=== PATIENT | male | born 1990 | race Caucasian/White ===

== ENCOUNTER 2022-01-11 00:05 | Emergency (ER) | payer BC, SELFPAY ==
[2022-01-11 00:16] VITALS: BP 139/83; PULSE 98; O2SAT 96
[2022-01-11 00:19] VITALS: BP 139/83; PULSE 66; RESP 18; TEMP 37; O2SAT 97; BMI 38.0
--- NOTE | 2022-01-11 00:39 | US_ITS ---
PROCEDURE INFORMATION: Exam: US Scrotum Exam date and time: 01/11/2022 1:36 AM Age: 31 years old Clinical indication: Scrotum pain; Additional info: Left testicle swollen no trauma. RO torsion TECHNIQUE: Imaging protocol: Real-time ultrasound of the scrotum and contents with color Doppler and image documentation. COMPARISON: No relevant prior studies available. FINDINGS: Right testicle: Normal. No mass. No torsion. Normal vascular flow. Right testicle measures 2.7 x 5 x 3.4 cm. Left testicle: Left testicle shows edema with mild increased vascularity. No mass. No torsion. Left testicle measures 2.5 x 4.5 x 3.9 cm. Epididymides: Normal. Scrotum: Normal. IMPRESSION: Left-sided orchitis.
--- NOTE | 2022-01-11 00:52 | [facility].EDUROGM ---
ED Disposition Clinical Impression: Orchitis of left testicle Disposition: Home, Self-Care Condition on Discharge: Good Instructions: DI for Orchitis Additional Instructions: use meds and see pcp and urology for follow up Prescriptions: Minocycline HCl [Minocycline HCl 100mg Tab*] 100 mg PO BID #20 tab Transmission Status: Pending to [facility] #[id number] Referrals: Provider,Referral, [Primary Care Provider] - - Critical Care Critical Care Time: No Attestation: On 01/11/22, the high probability of a clinically significant, sudden or life threatening deterioration of the following system(s) required my full and direct attention, intervention and personal management. The time I documented below is in addition to time spent performing reported procedures but includes the following listed in this critical care notation. Medical Decision Making - Medical Records Medical records reviewed: Yes: I reviewed the patient's medical records. - Alberto Inquiry Pt receiving controlled substance: No Vital Signs: 01/11/22 00:16 01/11/22 00:19 Temperature 98.6 F Temperature Source Oral Pulse Rate 98 H Pulse Rate [Right Brachial] 66 Respiratory Rate 18 Blood Pressure 139/83 Blood Pressure [Right Arm] 139/83 Blood Pressure Mean [Right Arm] 101 Blood Pressure Source [Right Arm] Automatic Cuff Blood Pressure Position [Right Arm] Sitting 02 Sat by Pulse Oximetry 96 97 Oxygen Delivery Method Room Air Room Air - Lab Data Lab results reviewed: Yes: I reviewed the patient's lab results. Lab Results 01/11/22 01:03: Urine Color Yellow, Urine Appearance Clear, Urine pH 5.5, Ur Specific [place] >= 1.030, Urine Protein Negative, Urine Glucose (UA) Negative, Urine Ketones Negative, Urine Blood Negative, Urine Nitrate Negative, Urine Bilirubin Negative, Urine Urobilinogen 0.2, Ur Leukocyte Esterase Negative, Urine WBC 10-20, Amorphous Sediment Trace, Urine Mucus Trace Orders (Tests/Meds): ED MEDICATIONS Generic Name Dose Route Start Last Admin Trade Name Freq PRN Reason Stop Dose Admin Acetaminophen/Codeine Phosphate 1 garrick 01/11/22 03:09 Acetaminophen 300mg W/Codeine 30mg Take Home Pack (6) PO 01/11/22 03:10 ONCE ONE Ceftriaxone Sodium 1 gm 01/11/22 03:08 Ceftriaxone 1gm Vial IM 01/11/22 03:09 ONCE ONE Levofloxacin 500 mg 01/11/22 03:09 Levofloxacin 500mg Tab PO 01/11/22 03:10 ONCE ONE Lidocaine HCl 0 ml 01/11/22 03:08 Lidocaine 1% 5ml Pf Vial IM 01/11/22 03:09 ONCE ONE Discontinued Medications Generic Name Dose Route Start Last Admin Trade Name Kizzy PRN Reason Stop Dose Admin Ondansetron HCl 4 mg 01/11/22 01:32 01/11/22 01:34 Ondansetron 4mg Odt SL 01/11/22 01:33 4 mg ONCE ONE Administration ORDERS Category Date Time Status Urine Culture Stat Micro 01/11/22 01:03 Received - US Data US Images: Other (scrotal) ED US Reviewed: Yes: I have viewed radiologist's interpretation Findings Narrative: orchitis Medical Decision Narrative: has orchitis but no torsion or mass Male Urogenital HPI - General Chief complaint: Urogenital-Male Stated complaint: Swollen left testicle Time Seen by Provider: 01/11/22 00:52 Mode of Arrival: Family Vehicle Source of Information: Patient, Parent(s), Medical Record Limitations: No Limitations Description of Symptoms (Recalled from ER Triage Doc. by RN): pt presents with complaint of left swollen testicle. States he noticed the discomfort earlier today, no interference with voiding. no previous history. - History of Present Illness HPI Narrative: swollen lt testicle over the last 2 days w/o d/c and no viral infection and no trauma Complaint: testicle pain, testicle swelling Onset (ago): day(s) Duration: constant Location: left testicle Severity: moderate Reports: denies other symptoms - Related Data Home Medications Medication Instructions Recorded Confirmed Ser
[2022-01-11 01:09] LABS: Microscopic, Urine URINE MICROSCOPIC (MICROSCOPIC)
[2022-01-11 01:11] LABS: Appearance,Urine CLEAR (Clear); Bilirubin,Urine Negative (Negative); Blood, Urine Negative (Negative); Color,Urine YELLOW (Yellow); Glucose,Urine (UA) Negative (Negative); Ketones,Urine Negative (Negative); Leukocyte Esterase,Urine Negative (Negative); Nitrate,Urine Negative (Negative); PH,Urine 5.5 (5.0-8.5); Protein,Urine Negative (Negative); Specific Gravity, Urine >= 1.030 (1.005-1.030); Urobilinogen,Urine 0.2 EU/dl (0.2)
[2022-01-11 01:15] LABS: Amorphous Sediment,Urine Trace /lpf; Mucus,Urine Trace /lpf
[2022-01-11 03:23] VITALS: BP 112/75; PULSE 85; RESP 19; TEMP 36.9; O2SAT 98
== END 2022-01-11 03:32 | disposition home or self-care (01) ==
PROVIDERS: Emergency Provider Emergency Medicine
DX: N45.2 Orchitis (principal)
CPT/HCPCS: 76870; 81001; 87086; 99284; J0696